=== PATIENT | female | born 1995 | race Caucasian/White ===

== ENCOUNTER 2017-03-26 12:20 | Emergency (ER) ==
[2017-03-26 12:24] VITALS: BP 129/69; TEMP 98.4; BMI 22.8
--- NOTE | 2017-03-26 14:04 | ED.PDOC ---
General ED Provider: Dr. MISTY WARD JR Chief Complaint: Back Pain Stated Complaint: 21 yo w female with several positive preg tests at home complains of low back pain after amateur massage, history of blighted ovum states pain and bleeding with miscarirage was similar requests test requests pain medication for back pain Time Seen by Physician: 14:04 Mode of Arrival: Walk-In Information Source: Patient Exam Limitations: No limitations Nursing and Triage Documentation Reviewed and Agree: No Review of Systems - Review Of Systems Constitutional: Reports: No symptoms Eyes: Reports: No symptoms Ears, Nose, Mouth, Throat: Reports: No symptoms Respiratory: Reports: No symptoms Cardiac: Reports: No symptoms GI: Reports: No symptoms : Reports: No symptoms Musculoskeletal: Reports: Back pain Skin: Reports: No symptoms Neurological: Reports: No symptoms Endocrine: Reports: No symptoms Hematologic/Lymphatic: Reports: No symptoms All Other Systems: Other Past Medical History - Past Medical History Previously Healthy: Yes Endocrine: Reports: None Cardiovascular: Reports: None Respiratory: Reports: None Hematological: Reports: None Gastrointestinal: Reports: None Genitourinary: Reports: None Neuro/Psych: Reports: None Musculoskeletal: Reports: None Cancer: Reports: None Last Menstrual Period: 02/07/17 - Surgical History General Surgical History: Reports: None - Family History Family History: Reports: None - Social History Smoking Status: Current every day smoker, Light tobacco smoker Hx Substance Use: No Alcohol Screening: None Physical Exam - Physical Exam Appearance: Well-appearing, Thin Eyes: JONEL, EOMI, Conjunctiva clear ENT: Ears normal, Nose normal, Oropharynx normal Respiratory: Airway patent GI/: Soft, Nontender, No masses Musculoskeletal: Normal strength, ROM intact, No edema, No calf tenderness (low back tenderness over paraspinal muscles and left iliac crest) Skin: Warm, Dry, Normal color Neurological: Sensation intact, Motor intact, Reflexes intact, Cranial nerves intact, Alert, Oriented Psychiatric: Affect appropriate, Mood appropriate, Anxious Critical Care Note - Critical Care Note Total Time (mins): 0 Course - Course Orders, Labs, Meds: Lab Review 03/26/17 03/26/17 14:27 14:27 Serum , Qual Positive Urine Color Yellow Urine Clarity Cloudy Urine pH 7.5 Ur Specific [place] 1.020 Urine Protein Negative Urine Glucose (UA) Negative Urine Ketones Negative Urine Blood Trace-intact Urine Nitrite Negative Urine Bilirubin Negative Urine Urobilinogen 0.2 Ur Leukocyte Esterase 2+ Urine Microscopic RBC 0-2 Urine Microscopic WBC 20-30 Ur Squamous Epith Cells Not present Urine Bacteria Trace Orders Category Date Time Status SERUM Stat LAB 03/26/17 14:27 Completed UA [URINALYSIS C & S IF INDICATED] Stat LAB 03/26/17 14:27 Completed URINE CULTURE Stat LAB 03/26/17 14:27 Received Vital Signs: Temp Pulse Resp BP Pulse Ox 03/26/17 12:21 98.4 F 98 H 16 129/69 99 Departure - Departure Time of Disposition: 15:07 Disposition: HOME SELF-CARE Discharge Problem: Low back strain, UTI (urinary tract infection), Instructions: Low Back Strain (ED), Lower Back Exercises (ED), Urinary Tract Infection in Women (ED), (ED) Condition: Good Pt referred to PMD for follow-up: Yes Additional Instructions: Urinary tract infection in can be concerning- take antibiotic and follow up if not improving rapidly follow up sooner follow up with obgyn for Tylenol for pain return if fever over 101.0 Prescriptions: Amoxicillin [Amoxil] 500 mg PO TID #21 capsule Prenat 115/Iron Fum/Folic/Dss [Pnv-Ferrous Rvasaoyt-Jmcx-RE] 1 each PO DAILY # 100 tablet Allergies/Adverse Reactions: Allergies No Known Allergies Allergy (Verified 03/26/17 12:24) Home Medications: Ambulatory Orders Amoxicillin [Amoxil] 500 mg PO TID #21 capsule 03/26/17 Prenat 115/Iron Fum/Folic/Dss [Pnv-Ferrous Auvnbrnm-Ftix-SP] 1 each PO DAILY # 100 tablet 03/26/17
[2017-03-26 14:34] LABS: BILIRUBIN,URINE Negative (NEGATIVE); KETONES,URINE Negative (NEGATIVE); LEUKOCYTE ESTERASE ,URINE 2+ (NEGATIVE); NITRITE,URINE Negative (NEGATIVE); PH,URINE 7.5 (5-9); PROTEIN,URINE Negative (NEGATIVE); URINE, BLOOD Trace-intact (NEGATIVE)
[2017-03-26 14:36] LABS: ADD URINE MICROSCOPIC YES
[2017-03-26 14:37] LABS: BACTERIA,URINE TRACE (NOT PRESENT)
[2017-03-26 15:05] LABS: SERUM PREGNANCY INTERNAL QC INTERNAL QC VALID
== END 2017-03-26 15:20 | disposition home or self-care (01) ==
LOC: ED 12:20
DX: S39.012A Strain of muscle, fascia and tendon of lower back, initial encounter (principal); O23.40 Unspecified infection of urinary tract in pregnancy, unspecified trimester; F17.210 Nicotine dependence, cigarettes, uncomplicated
CPT/HCPCS: 36415; 81001; 84703; 87086; 99283

== ENCOUNTER 2018-08-10 23:11 | Emergency (ER) ==
[2018-08-10 23:25] VITALS: BMI 23.0
[2018-08-10] MEDS ORDERED: PHENERGAN 25 MG/ML VIAL IM STA (23:25)
[2018-08-10] MEDS ORDERED: DEMEROL 50 MG/ML VIAL IM STA (23:25)
--- NOTE | 2018-08-11 00:35 | CT ---
EXAM: CT scan abdomen pelvis without contrast HISTORY: Pain COMPARISON: CT scan abdomen pelvis 10/31/2016 FINDINGS: Contiguous axial images obtained from lung bases to the symphysis pubis without contrast u tilizing pre mm collimation. Sagittal and coronal reconstructions were imaged and reviewed.. The vi sualized lung bases are clear. The gallbladder is fluid filled without cholelithiasis. The liver, p ancreas, spleen and adrenal glands have normal unenhanced CT appearance. The abdominal aorta is norm al in course and caliber. The left kidney is unremarkable. There is mild right-sided hydronephrosis and hydroureter proximally without evidence of obstructing mechanism. Findings may be related to re cent passage of a calculus versus nonopaque calculus.. . The appendix is fluid-filled and contains two appendicoliths and measures upwards of [address] Prior [address] revealed appendiceal diameter of approximate 4 mm.. Findings are suggestive of acute mckayla endicitis . There is a right adnexal cyst measuring 1.9 x 1.7 cm. There is no free fluid. IMPRESSION: Findings compatible with acute appendicitis. Mild right-sided hydronephrosis and hydroureter proximally without obstructing mechanism identified. Results were conveyed via telephone to the emergency room physician 12:29 a.m. 08/11/2018
[2018-08-11] MEDS ORDERED: SODIUM CHLORIDE 1,000 ML IV STA (00:40)
--- NOTE | 2018-08-11 00:47 | ED.PDOC ---
General ED Provider: Dr. DEVANTE ENGEL-ER Chief Complaint: Abdominal Pain Stated Complaint: dorina been hurting Time Seen by Physician: 23:15 Mode of Arrival: Walk-In Information Source: Patient Exam Limitations: No limitations Primary Care Provider: MISTY PEDRO Nursing and Triage Documentation Reviewed and Agree: Yes Does patient meet sepsis criteria?: No System Inflammatory Response Syndrome: Not Applicable Sepsis Protocol: For patient's 13 years and over: Temp is 96.8 and below OR 101 and greater Pulse >90 BPM Resp >20/minute Acutely Altered Mental Status Are patient's symptoms suggestive of a new infection, such as: -Pneumonia -Skin, Soft Tissue -Endocarditis -UTI -Bone, Joint Infection -Implantable Device -Acute Abdominal Infection -Wound Infection -Meningitis -Blood Stream Catheter Infection -Unknown GI Complaint Exam - Abdominal Pain Complaint/Exam Onset: Gradual Duration: 2 hrs Symptoms Are: Still present Timing: Constant Initial Severity: Mild Current Severity: Mild Location of Pain: Discrete, Epigastric Character: Reports: Dull, Aching Associated Signs and Symptoms: Reports: Nausea Differential Diagnoses: Constipation, Pancreatitis, GB Review of Systems - Review Of Systems Constitutional: Reports: No symptoms Eyes: Reports: No symptoms Ears, Nose, Mouth, Throat: Reports: No symptoms Respiratory: Reports: No symptoms Cardiac: Reports: No symptoms GI: Reports: Abdominal pain, Nausea : Reports: No symptoms Musculoskeletal: Reports: No symptoms Skin: Reports: No symptoms Neurological: Reports: No symptoms Endocrine: Reports: No symptoms Hematologic/Lymphatic: Reports: No symptoms All Other Systems: Reviewed and Negative Past Medical History - Past Medical History Previously Healthy: Yes Endocrine: Reports: None Cardiovascular: Reports: None Respiratory: Reports: None Hematological: Reports: None Gastrointestinal: Reports: None Genitourinary: Reports: None Neuro/Psych: Reports: None Musculoskeletal: Reports: None Cancer: Reports: None Last Menstrual Period: PRESENTLY - Surgical History General Surgical History: Reports: None - Family History Family History: Reports: None - Social History Smoking Status: Current every day smoker, Light tobacco smoker Hx Substance Use: No Alcohol Screening: None - Immunizations Tetanus Shot up to Date: Yes Physical Exam - Physical Exam Appearance: Well-appearing, No pain distress, Well-nourished Pain Distress: Mild Eyes: JONEL, EOMI, Conjunctiva clear ENT: Ears normal, Nose normal, Oropharynx normal Neck: Supple Respiratory: Airway patent Cardiovascular: RRR, Pulses normal, No rub, No murmur GI/: Soft, Nontender, No masses, Bowel sounds normal Musculoskeletal: Normal strength, ROM intact, No edema, No calf tenderness Skin: Warm Neurological: Sensation intact Psychiatric: Affect appropriate, Mood appropriate Interpretation - Radiology Interpretation Radiology Interpretation By: Radiologist Radiology Results: Positive Exam Interpreted: CT Scan Critical Care Note - Critical Care Note Total Time (mins): 0 Course - Course Hematology/Chemistry: 08/10/18 23:35 08/10/18 23:35 Orders, Labs, Meds: Lab Review 08/10/18 08/10/18 08/10/18 23:33 23:33 23:35 WBC 8.50 RBC 5.20 Hgb 14.9 Hct 43.2 MCV 83.1 MCH 28.7 MCHC 34.5 RDW Coeff of Jah 13.1 Plt Count 310 Immature Gran % (Auto) 0.1 Neut % (Auto) 58.0 Lymph % (Auto) 34.1 [place] % (Auto) 7.2 Eos % (Auto) 0.2 Baso % (Auto) 0.4 Immature Gran # (Auto) 0.0 Neut # (Auto) 4.9 Lymph # (Auto) 2.9 [place] # (Auto) 0.6 Eos # (Auto) 0.0 Baso # (Auto) 0.0 ESR Sodium Potassium Chloride Carbon Dioxide Anion Gap BUN Creatinine Estimated GFR (MDRD) BUN/Creatinine Ratio Glucose Calcium Total Bilirubin AST ALT Alkaline Phosphatase Total Protein Albumin Globulin Albumin/Globulin Ratio Amylase Lipase Serum , Qual Urine Color Yellow Urine Clarity Clear Urine pH 7.0 Ur Specific [place] 1.020 Urine Protein Negative Urine Glucose (UA) Negative Urine Ketones 2+ Urine Blood 2+ Urine Nitrite Negative Urine Bilirubin Negative Urine Urobilinogen 1.0 Ur Leukocyte Esterase Negative Urine Microscopic RBC 20-30 Urine Microscopic WBC 2-5 Ur Squamous Epith Cells 10-20 Amorphous Sediment 1+ Urine Bacteria Trace Urine Opiates Screen Negative Ur Oxycodone Screen Negative Urine Methadone Screen Negative Ur Propoxyphene Screen Negative Ur Barbiturates Screen Negative U Tricyclic Antidepress Negative Ur Phencyclidine Scrn Negative Ur Amphetamine Screen Positive U Methamphetamines Scrn Negative U Benzodiazepines Scrn Negative Urine Cocaine Screen Negative U Cannabinoids Screen Positive 08/10/18 08/10/18 08/10/18 23:35 23:35 23:35 WBC RBC Hgb Hct MCV MCH MCHC RDW Coeff of Jah Plt Count Immature Gran % (Auto) Neut % (Auto) Lymph % (Auto) [place] % (Auto) Eos % (Auto) Baso % (Auto) Immature Gran # (Auto) Neut # (Auto) Lymph # (Auto) [place] # (Auto) Eos # (Auto) Baso # (Auto) ESR 2 Sodium 140.4 Potassium 3.72 Chloride 104.2 Carbon Dioxide 22.5 Anion Gap 17.42 BUN 9.3 Creatinine 0.69 Estimated GFR (MDRD) 105.00 BUN/Creatinine Ratio 13.47 Glucose 99.2 Calcium 10.05 Total Bilirubin 0.96 AST 25.7 ALT 22.7 Alkaline Phosphatase 56.1 Total Protein 8.32 H Albumin 5.47 H Globulin 2.85 Albumin/Globulin Ratio 1.91 Amylase 62.6 Lipase 105.0 Serum , Qual Negative Urine Color Urine Clarity Urine pH Ur Specific [place] Urine Protein Urine Glucose (UA) Urine Ketones Urine Blood Urine Nitrite Urine Bilirubin Urine Urobilinogen Ur Leukocyte Esterase Urine Microscopic RBC Urine Microscopic WBC Ur Squamous Epith Cells Amorphous Sediment Urine Bacteria Urine Opiates Screen Ur Oxycodone Screen Urine Methadone Screen Ur Propoxyphene Screen Ur Barbiturates Screen U Tricyclic Antidepress Ur Phencyclidine Scrn Ur Amphetamine Screen U Methamphetamines Scrn U Benzodiazepines Scrn Urine Cocaine Screen U Cannabinoids Screen Orders Category Date Time Status TRANSFER TO OUTSIDE FACILITY .TO [facility] 08/11/18 00:47 Active ([place], [place]) WRITE TRANSFER/SBAR NOTE ONCE CARE 08/11/18 00:48 Active DISCHARGE ASSESSMENT ONCE DISCHARGE 08/11/18 00:48 Active WRITE DISCHARGE NOTE ONCE DISCHARGE 08/11/18 00:48 Active IV [ED IV/MEDIPORT/POWERPORT] .ONCE EMERGENCY 08/11/18 00:39 Active AMYLASE Stat LAB 08/10/18 23:35 Completed CBC W/ AUTO DIFF Stat LAB 08/10/18 23:35 Completed COMPREHENSIVE METABOLIC PANEL Stat LAB 08/10/18 23:35 Completed ESR Stat LAB 08/10/18 23:35 Completed LIPASE Stat LAB 08/10/18 23:35 Completed SERUM Stat LAB 08/10/18 23:35 Completed URINALYSIS C & S IF INDICATED Stat LAB 08/10/18 23:33 Completed URINE DRUG SCREEN (RAPID FOR ED) [DRUG SCREEN, URINE, LAB 08/10/18 23:33 Completed RAPID] Stat 0.9 % Sodium Chloride [Saline Flush] MEDS 08/11/18 00:39 Ordered 1 syr IVF PRN PRN Meperidine HCl/Pf [Demerol 50 mg/ml Vial] MEDS 08/10/18 23:25 Discontinued 50 mg IM ONCE STA Promethazine HCl [Phenergan 25 mg/ml Vial] MEDS 08/10/18 23:25 Discontinued 25 mg IM ONCE STA Sodium Chloride 0.9% [Sodium Chloride] 1,000 ml MEDS 08/11/18 00:40 Active IV 100 mls/hr CT ABDOMEN/PELVIS WO CONTRAST Stat RADS 08/10/18 23:25 Completed Medications Generic Name Dose Route Start Last Admin Trade Name Freq PRN Reason Stop Dose Admin Sodium Chloride 1,000 mls @ 100 mls/hr 08/11/18 00:40 08/11/18 00:50 Sodium Chloride IV 08/11/18 10:39 100 mls/hr .Q10H STA Administration Sodium Chloride 1 syr 08/11/18 00:39 08/11/18 00:50 Saline Flush IVF 1 syr PRN PRN Administration To flush IV Discontinued Medications Generic Name Dose Route Start Last Admin Trade Name Freq PRN Reason Stop Dose Admin Meperidine HCl 50 mg 08/10/18 23:25 08/10/18 23:31 Demerol 50 Mg/Ml Vial IM 08/10/18 23:26 50 mg ONCE STA Administration Promethazine HCl 25 mg 08/10/18 23:25 08/10/18 23:30 Phenergan 25 Mg/Ml Vial IM 08/10/18 23:26 25 mg ONCE STA Administration Vital Signs: Temp Pulse Resp BP Pulse Ox 08/10/18 23:12 98.7 F 107 H 32 H 133/86 100 Departure - Departure Time of Disposition: 00:47 Disposition: TSF SHORT-TRM HOSP Discharge Problem: Abdominal pain Instructions: Acute Abdominal Pain (ED) Condition: Good Pt referred to PMD for follow-up: No IPMP verified?: No Allergies/Adverse Reactions: Allergies No Known Allergies Allergy (Verified 08/10/18 23:21) Home Medications: Ambulatory Orders Lisdexamfetamine Dimesylate [Vyvanse] 50 mg PO DAILY 08/10/18 Transfer Form Completed: Yes Disposition Discussed With: Patient
[2018-08-11 01:23] VITALS: BP 103/61; TEMP 98.6
[2018-08-11] MEDS ORDERED: DILAUDID 1 MG/ML SYRINGE IVP STA (01:43)
== END 2018-08-11 02:25 | disposition short-term general hospital (02) ==
LOC: ED 23:11
DX: R10.13 Epigastric pain (principal); R11.0 Nausea; F17.210 Nicotine dependence, cigarettes, uncomplicated
CPT/HCPCS: 36415; 80053; 80306; 81001; 82150; 83690; 84703; 85025; 85651; 96361; 96372; 96374; 99285

== ENCOUNTER 2018-08-11 02:27 | Outpatient (CLI) ==
[2018-08-10 23:25] VITALS: BMI 23.0
== END 2018-08-11 02:47 | disposition short-term general hospital (02) ==
LOC: AMBL 02:27
PROVIDERS: ATTEND Family Medicine
DX: K35.80 Unspecified acute appendicitis (principal); R10.30 Lower abdominal pain, unspecified

== ENCOUNTER 2018-08-29 16:26 | Emergency (ER) ==
[2018-08-29 16:26] VITALS: BMI 23.0
[2018-08-29 16:32] VITALS: BP 121/79; TEMP 99
--- NOTE | 2018-08-29 17:00 | ED.PDOC ---
General ED Provider: Dr. REUBEN OJEDA Chief Complaint: Respiratory Complaint Stated Complaint: flu like symptoms Time Seen by Physician: 16:30 Mode of Arrival: Walk-In Information Source: Patient Exam Limitations: No limitations Nursing and Triage Documentation Reviewed and Agree: Yes Does patient meet sepsis criteria?: No System Inflammatory Response Syndrome: Not Applicable Sepsis Protocol: For patient's 13 years and over: Temp is 96.8 and below OR 101 and greater Pulse >90 BPM Resp >20/minute Acutely Altered Mental Status Are patient's symptoms suggestive of a new infection, such as: -Pneumonia -Skin, Soft Tissue -Endocarditis -UTI -Bone, Joint Infection -Implantable Device -Acute Abdominal Infection -Wound Infection -Meningitis -Blood Stream Catheter Infection -Unknown Respiratory Complaint Exam - Respiratory Complaint/Exam Symptoms Are: Still present Timing: Intermittent Initial Severity: Mild Current Severity: Mild Location: Nose, Throat, Chest Character: Reports: Non-productive cough Aggravating: Reports: None Alleviating: Reports: None Associated Signs and Symptoms: Reports: URI, Nasal congestion. Denies: Rapid breathing, Dyspnea, Fever, Chills, Chest pain, Pleuritic chest pain, Wheezing, Hemoptysis, Dizziness, Calf pain, Calf swelling, Edema, Hoarseness, Sinus discomfort, Vomiting, Sore throat, Weight loss, Decreased oral intake, Increased thirst, Increased appetite, Increased urination Related History: Reports: Similar episode History of Healthcare-Acquired Pneumonia: No Related Surgical History: Reports: None Pulmonary Embolism Risk Factors: None Cardiac Risk Factors: Reports: None Pseudomonas Risk Factors: Reports: None Tuberculosis Risk Factors: Reports: None Status Asthmaticus Risk Factors: Reports: None Home Oxygen Use: No Recent Stress Test: No Recent Echo/LV Function: No Current Antibiotic Use: No Current Asthma Medication Use: No Respiratory Distress: None Inadequate Respiratory Effort: No Dysphagia Present: No Stridor Present: No JVD Present: No Accessory Muscle Use: No Retractions: Not Present Diminished Breath Sounds: No Sinus Tenderness: None Grunting Respirations: No Kussmaul Respirations: No Differential Diagnoses: Influenza, Laryngitis, Lower Resp. Infection Review of Systems - Review Of Systems Constitutional: Reports: No symptoms Eyes: Reports: No symptoms Ears, Nose, Mouth, Throat: Reports: No symptoms Respiratory: Reports: Cough Cardiac: Reports: No symptoms GI: Reports: No symptoms : Reports: No symptoms Musculoskeletal: Reports: No symptoms Skin: Reports: No symptoms Neurological: Reports: No symptoms Endocrine: Reports: No symptoms Hematologic/Lymphatic: Reports: No symptoms All Other Systems: Reviewed and Negative Past Medical History - Past Medical History Previously Healthy: Yes Endocrine: Reports: None Cardiovascular: Reports: None Respiratory: Reports: None Hematological: Reports: None Gastrointestinal: Reports: None Genitourinary: Reports: None Neuro/Psych: Reports: None Musculoskeletal: Reports: None Cancer: Reports: None Last Menstrual Period: due any time - Surgical History General Surgical History: Reports: None - Family History Family History: Reports: None - Social History Smoking Status: Current every day smoker, Light tobacco smoker Hx Substance Use: No Alcohol Screening: None Physical Exam - Physical Exam Appearance: Well-appearing, No pain distress, Well-nourished Eyes: JONEL, EOMI, Conjunctiva clear ENT: Ears normal, Nose normal, Oropharynx normal Respiratory: Rhonchi Cardiovascular: RRR, Pulses normal, No rub, No murmur GI/: Soft, Nontender, No masses, Bowel sounds normal, No Organomegaly Musculoskeletal: Normal strength, ROM intact, No edema, No calf tenderness Skin: Warm, Dry, Normal color Neurological: Sensation intact, Motor intact, Reflexes intact, Cranial nerves intact, Alert, Oriented Psychiatric: Affect appropriate, Mood appropriate Critical Care Note - Critical Care Note Total Time (mins): 0 Course - Course Orders, Labs, Meds: Orders Category Date Time Status FLU A/B MOLECULAR Stat LAB 08/29/18 16:53 Uncollected MOLECULAR GROUP A STREP Stat LAB 08/29/18 16:53 Uncollected Vital Signs: Temp Pulse Resp BP Pulse Ox 08/29/18 16:28 99.0 F 98 H 20 121/79 98 Departure - Departure Time of Disposition: 16:59 Disposition: HOME SELF-CARE Discharge Problem: Bronchitis Instructions: Acute Bronchitis (ED) Condition: Good Pt referred to PMD for follow-up: Yes IPMP verified?: No Additional Instructions: Please call your Family Physician as soon as possible to schedule a follow-up appointment. Allergies/Adverse Reactions: Allergies No Known Allergies Allergy (Verified 08/29/18 16:31) Home Medications: Ambulatory Orders 1 [No Reported Medications] 08/29/18
== END 2018-08-29 17:11 | disposition home or self-care (01) ==
LOC: ED 16:26
DX: J40 Bronchitis, not specified as acute or chronic (principal); F17.210 Nicotine dependence, cigarettes, uncomplicated
CPT/HCPCS: 99282